=== PATIENT | male | born 1995 | race American Indian/Alaskan Native ===

== ENCOUNTER 2019-11-03 22:21 | Emergency (ER) | payer SELFPAY ==
[2019-11-03] MEDS ORDERED: HYDROcodone/ACETAMINOPHEN 5-325 MG TAB PO ONE (23:44)
--- NOTE | 2019-11-03 23:49 | XRay Report ---
EXAMINATION: Right hand radiograph, 4 views CLINICAL INFORMATION: Right hand pain after trauma COMPARISON: None. FINDINGS: There is a minimally impacted fracture of the distal metacarpal of the second digit which i s age indeterminate. No additional bony abnormality is visualized. Signer Name: Montserrat Agudelo MD Signed: 11/03/2019 11:44 PM Workstation Name: [id number]
--- NOTE | 2019-11-03 23:58 | Emergency Department Report ---
Upper Extremity - HPI Chief Complaint: Extremity Injury, Upper Stated Complaint: FRACTURE TO RT INDEX FINGER Time Seen by Provider: 11/03/19 23:08 Upper Extremity: Right Hand (2nd and ) Occurred When: 1 Day Mechanism: Hit with Object Severity: moderate Symptoms: Yes Pain with Movement, Yes Deformity, Yes Limited Range of Movement, Yes Swelling, No Numbness, No Weakness, No Bruising/Ecchymosis, No Laceration or Abrasion Other History: pt states he punched a wall with his fist , now with pain and swelling, ED Review of Systems ROS: Stated complaint: FRACTURE TO RT INDEX FINGER Other details as noted in HPI Constitutional: denies: chills, fever Eyes: as per HPI ENT: denies: ear pain, throat pain Respiratory: denies: cough, shortness of breath, wheezing Cardiovascular: denies: chest pain, palpitations Endocrine: no symptoms reported Gastrointestinal: denies: abdominal pain, nausea, diarrhea Genitourinary: denies: urgency, dysuria Musculoskeletal: other (right hand pain) Skin: denies: rash, lesions Neurological: denies: headache, weakness, paresthesias Psychiatric: denies: anxiety, depression Hematological/Lymphatic: denies: easy bleeding, easy bruising ED Past Medical Hx - Past Medical History Hx Asthma: Yes - Surgical History Past Surgical History?: No - Social History Smoking Status: Current Every Day Smoker Substance Use Type: Alcohol, Marijuana - Medications Home Medications: Home Medications Medication Instructions Recorded Confirmed Last Taken Type HYDROcodone/APAP 5-325 [[place] 1 each PO Q6HR PRN 3 Days #12 11/04/19 Unknown Rx 5-325 mg TAB] tablet Upper Extremity Exam - Exam General: Vital signs noted. No distress. Alert and acting appropriately. Head and Torso: No HEENT Abnormality, No Neck Tenderness, No Chest/Lungs Abnormality, No Abdominal Tenderness, No Back Tenderness Shoulder Exam: Yes Normal Range of Motion in Shoulder, No Shoulder Tenderness, No Clavicle Tenderness, No Shoulder Deformity, No AC Joint Tenderness Arm Exam: No Arm/Humerus Tenderness, No Arm Deformity Elbow: No Elbow Tenderness, No Normal Range of Motion in Elbow, No Elbow Deformity Forearm: No Forearm Tenderness, No Forearm Deformity, No Pain with Pronation, No Pain with Supination Wrist: Yes Normal ROM in Wrist, No Wrist Tenderness, No Wrist Deformity, No Snuffbox Tenderness, No Pain with Axial Thumb Compression Hand: Yes Hand Tenderness, Yes Normal ROM in Digit(s), No Digit Tenderness, No Digit(s) Deformity, No Tendon Dysfunction CMS Exam: Yes Normal Distal Pulses, Yes Normal Capillary Refill, Yes Normal Distal Sensation, No Broken Skin ED Course Vital Signs 11/03/19 22:28 Temperature 98.4 F Pulse Rate 87 Respiratory 20 Rate Blood Pressure 136/82 O2 Sat by Pulse 98 Oximetry ED Medical Decision Making - Radiology Data Radiology results: report reviewed, image reviewed Findings Reporting MD: Montserrat Agudelo Dictation Time: November 03, 2019 22:44 Paper Baler: Not available [employer] Resources Program Director Date: EXAMINATION: Right hand radiograph, 4 views CLINICAL INFORMATION: Right hand pain after trauma COMPARISON: None. FINDINGS: There is a minimally impacted fracture of the distal metacarpal of the second digit which is age indeterminate. No additional bony abnormality is visualized. Signer Name: Montserrat Agudelo MD Signed: 11/03/2019 10:44 PM Workstation Name: [id number] - Medical Decision Making close metacarpal fracture , 2nd digit, plan: splint, hydrocodone follow up with with orthorpedics in 2-3 days. pt verbalized agreement and understanding of same. splint check will be noted prior to discharge. splint check completed, spaciens in appropriate bis two finger insertion. Critical care attestation.: If time is entered above; I have spent that time in minutes in the direct care of this critically ill patient, excluding procedure time. ED Disposition Clinical Impression: Fracture, metacarpal Qualifiers: Encounter type: initial encounter Metacarpal bone: second Fracture type: closed Metacarpal location: shaft Fracture alignment: nondisplaced Laterality: right Qualified Code(s): S62.350A - Nondisplaced fracture of shaft of second metacarpal bone, right hand, initial encounter for closed fracture Disposition: DC-01 TO HOME OR SELFCARE Is pt being admited?: No Does the pt Need Aspirin: No Condition: Stable Instructions: Hand Fracture (ED) Prescriptions: HYDROcodone/APAP 5-325 [[place] 5-325 mg TAB] 1 each PO Q6HR PRN 3 Days #12 tablet PRN Reason: Pain Referrals: ALLAN ROMAN MD [Referring] - 3-5 Days Forms: Work/School Release Form(ED) Time of Disposition: 00:12
[2019-11-04 00:36] VITALS: BP 132/80
== END 2019-11-04 00:38 | disposition home or self-care (01) ==
LOC: ED 22:21
DX: S62.350A Nondisplaced fracture of shaft of second metacarpal bone, right hand, initial encounter for closed fracture (principal); X58.XXXA Exposure to other specified factors, initial encounter; Y93.89 Activity, other specified; Y92.89 Other specified places as the place of occurrence of the external cause; Y99.8 Other external cause status